=== PATIENT | female | born 1975 | race Caucasian/White ===

== ENCOUNTER → 2018-02-24 | Outpatient (CLI) | payer OTHER | LOC: M.CT 09:15 | DX: Z13.6 Encounter for screening for cardiovascular disorders (principal) ==

== ENCOUNTER → 2018-06-16 | Outpatient (CLI) | payer OTHER | LOC: M.RAD 13:46 | DX: Z12.31 Encounter for screening mammogram for malignant neoplasm of breast (principal) ==